=== PATIENT | male | born 1995 | race Caucasian/White ===

== ENCOUNTER 2017-05-27 19:24 | Emergency (ER) | payer BC ==
[~2017-05-27] VITALS: Ht 190.5 cm; Wt 79.5 kg
[2017-05-27 19:44] VITALS: BP 158/87; TEMP 97.9
[2017-05-27 20:38] LABS: PH 7 (5-8); SQUAMOUS EPITHELIAL None Seen /hpf; URINE APPEARANCE Clear; URINE BACTERIA Rare /hpf; URINE BILIRUBIN Negative (NEGATIVE); URINE BLOOD Negative (NEGATIVE); URINE COLOR Yellow; URINE GLUCOSE Negative (NEGATIVE); URINE KETONE Negative (NEGATIVE); URINE RBC 0-2 /hpf; URINE UROBILINOGEN Negative (NEGATIVE); URINE WBC 0-2 /hpf
[2017-05-27] MEDS ORDERED: DOXYCYCLINE 10100 MG PO (21:23)
[2017-05-27] MEDS ORDERED: MOTRIN 800800 MG/TAB PO (21:23)
[2017-05-27 21:53] VITALS: PULSE 66
[2017-05-27 22:25] LABS: CHLAMYDIA/TRACH by PCR Male NOT DETECTED; Neisseria Gon by PCR Male NOT DETECTED
== END 2017-05-27 21:53 | disposition home or self-care (01) ==
LOC: COL.ER 19:24
PROVIDERS: Emergency Medicine
DX: N45.1 Epididymitis (principal)
CPT/HCPCS: J0696